=== PATIENT | female | born 1990 | race Caucasian/White ===

== ENCOUNTER → 2019-12-31 09:12 | Outpatient (CLI) | payer OTHER, SELFPAY ==
--- NOTE | 2019-12-31 | DI.MRI.S_ITS ---
PROCEDURE: MR KNEE RT W CON INDICATIONS: PAIN IN RIGHT KNEE TECHNIQUE: After the administration of 50 mL of dilute intra-articular Gadolinium contrast, sagittal T1 spin echo with fat saturation and PD fast spin echo with fat saturation, coronal T1 spin echo with and without fat saturation, coronal T2 fast spin echo with fat saturation, axial PD fast spin echo with fat saturation through the knee. COMPARISON: None. FINDINGS: Image quality: Excellent. Menisci: Blunted appearance of the body of the medial meniscus, presumably postoperative change related to partial meniscectomy. Undersurface irregularity of the posterior horn on image 25/9 noted. Also, there is mild undersurface contour irregularity on image 18/12 although this is quite subtle and may be postoperative. Lateral meniscus intact. Cruciate ligaments: Anterior cruciate ligament appears intact. Posterior cruciate ligament appears intact. Medial structures: The medial collateral ligament appears intact. Semimembranosus tendon appears intact. Visualized portions of the pes anserinus tendons appear normal. No abnormal bursal fluid. Lateral structures: The lateral collateral ligament intact. Biceps femoris tendon appears intact. Popliteus tendon grossly unremarkable. Iliotibial band appears intact. Anterior structures: Quadriceps tendon intact. Medial and lateral patellofemoral ligaments intact. Patellar tendon appears intact. Hoffa's fat pad unremarkable. Bones and cartilage: No focal marrow contusion or discrete low signal fracture line. Within the medial compartment, cartilage appears intact although there is subchondral sclerosis in the tibial plateau Within the lateral compartment, cartilage appears intact Within the patellofemoral compartment, cartilage appears intact Joint space: No joint effusion. No Wynne's cyst. No specific evidence of intra-articular loose body. IMPRESSION: Diminutive size of the body of the medial meniscus, presumably postoperative appearance. Undersurface irregularity involving the posterior horn and body raising the possibility of subtle nondisplaced recurrent tear although this could represent postoperative appearance, therefore please correlate with exam findings. Minimal medial compartment degenerative changes as above No loose body identified. Dictated by: Amadou Shen M.D. on 12/31/2019 at 12:57 Approved by: Amadou Shen M.D. on 12/31/2019 at 13:05
--- NOTE | 2019-12-31 | DI.RAD.S_ITS ---
PROCEDURE: FL KNEE INJECTION MR/CT RT INDICATIONS: PAIN IN RIGHT KNEE TECHNIQUE: The indications, alternatives, benefits, risks, and complications of the procedure were explained to the patient. Written informed consent was obtained and placed in the chart. The knee was examined fluoroscopically, and a site chosen for knee joint injection. The skin was prepped and draped in a sterile fashion, and 1% Lidocaine infiltrated from the skin down to the articular surface. A hypodermic needle was then introduced into the joint and iodinated contrast media was instilled to confirm the intra-articular needle tip placement. This was followed by approximately 50 mL dilute solution of a gadolinium containing MR contrast agent. The needle was removed and a bandage was applied. An Miko wrap was then applied around the knee joint to keep the contrast from collecting in the suprapatellar recess. The patient experienced no complications throughout the procedure and left the fluoroscopic suite in no apparent distress. FINDINGS: Single fluoroscopic spot image demonstrates intra-articular location to injected iodinated contrast. IMPRESSION: Successful fluoroscopically guided administration of dilute Gadolinium solution into the knee joint for MR arthrogram. Dictated by: Amadou Shen M.D. on 12/31/2019 at 10:55 Approved by: Amadou Shen M.D. on 12/31/2019 at 10:56
== END ==
PROVIDERS: Referring Provider Family Medicine; Visit Provider Family Medicine
DX: M25.561 Pain in right knee (principal)
CPT/HCPCS: 27369; 73722; 77002

== ENCOUNTER → 2020-07-07 09:44 | Outpatient (CLI) | payer OTHER, SELFPAY ==
--- NOTE | 2020-07-07 09:47 | DI.MRI.S_ITS ---
PROCEDURE: MR KNEE LT WO CON INDICATIONS: Pain in left knee TECHNIQUE: Noncontrast sagittal PD fast spin echo and T2 fast spin echo with fat saturation, sagittal 3-D FLASH with fat saturation; coronal T1 spin echo and PD fast spin echo with fat saturation, and axial PD fast spin echo with fat saturation through the knee. COMPARISON: None. FINDINGS: Image quality: Excellent. Menisci: The medial and lateral menisci demonstrate normal morphology and internal signal. The meniscal root ligaments appear intact. Cruciate ligaments: The anterior and posterior cruciate ligaments appear intact. Medial structures: Mildly thickened MCL at its insertion of medial femoral condyle is seen. The posterior oblique ligament, semimembranosus tendon insertions, oblique popliteal ligament, and meniscocapsular junction appear intact. Visualized portions of the pes anserinus tendons appear normal. No abnormal bursal fluid. Lateral structures: The lateral collateral ligament, long and short heads of the biceps femoris tendon appear intact. The popliteus tendon appears normal; the popliteofibular ligament appears intact. The posterosuperior and anteroinferior popliteomeniscal fascicles appear intact. The arcuate and fabellofibular ligaments appear intact, on either side of the lateral inferior geniculate artery. Iliotibial band appears normal. Anterior structures: The quadriceps and patellar tendons appear intact. Patellar alignment is normal. No femoral trochlear dysplasia or ventral trochlear prominence. No edema in the infrapatellar fat pad. Bones and cartilage: No bone marrow contusions or fractures. The cartilage of the medial and lateral femorotibial compartments appears normal in thickness. Subtle T2 hyperintense signal involving lateral facet of patella cartilage near the apex is seen suggestive of Adalgisa low-grade chondromalacia. Joint space: There is small amount of joint fluid. No Wynne's cyst. Normal appearing synovial plicae are incidentally noted. IMPRESSION: 1. No evidence of focal meniscal tear. 2. Cruciate ligaments are intact. Low-grade proximal MCL sprain at its femoral insertion. 3. 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 Dictated by: Inocente Triana M.D. on 07/07/2020 at 11:00 Approved by: Inocente Triana M.D. on 07/07/2020 at 11:02
== END ==
PROVIDERS: PCP Orthopaedic Surgery; Referring Provider Orthopaedic Surgery; Visit Provider Orthopaedic Surgery
DX: M25.562 Pain in left knee (principal); S83.412A Sprain of medial collateral ligament of left knee, initial encounter
CPT/HCPCS: 73721